=== PATIENT | female | born 2000 | race Hispanic/Latino ===

== ENCOUNTER 2023-07-23 03:13 | Emergency (ER) | payer SELFPAY | END 2023-07-23 03:41 | disposition left against medical advice (07) | LOC: ERS 03:13 | DX: Z53.21 Procedure and treatment not carried out due to patient leaving prior to being seen by health care provider (principal) ==

== ENCOUNTER 2024-09-29 08:14 | Day surgery (SDC) | payer BC ==
[2024-09-29] MEDS ORDERED: Acetaminophen 500 MG TAB ONE (09:01)
[2024-09-29] MEDS: Acetaminophen 500 MG TAB PO SCH (09:03)
[2024-09-29] MEDS: Iron Sucrose Complex 500 MG in Sodium Chloride 0.9% 250 ML 250 ML IVPB SCH (09:25)
[2024-09-29 14:24] VITALS: BP 115/71; TEMP 98.1
== END 2024-09-29 14:34 | disposition home or self-care (01) ==
LOC: ONC/OP 08:14
PROVIDERS: ATTEND Family Medicine
DX: O99.019 Anemia complicating pregnancy, unspecified trimester (principal); Z3A.00 Weeks of gestation of pregnancy not specified
CPT/HCPCS: 96365; 96366; J1756; J7050